=== PATIENT | female | born 1970 | race Caucasian/White ===

== ENCOUNTER 2018-04-24 16:05 | Outpatient (CLI) | payer OTHER ==
[2015-06-07 21:35] VITALS: BP 100/59
--- NOTE | 2018-04-24 19:01 | Diagnostic Imaging Report ---
IMER DRUMMOND (ALEENA) - OP [facility] [id number] [id number] Report Submission Date: Apr 24, 2018 6:02:11 PM PROCESS MANAGER Patient Study Name: CAROLEE FREITAS Date: Apr 24, 2018 4:40:10 PM PROCESS MANAGER Modality Type: DX Gender: F Description: C SPINE 2 OR 3 VIEWS : 72 Institution: [facility] Physician: IMER DRUMMOND) Enmanuel FAIRCHILD Cervical spine, three views. History: Chronic neck pain. Findings: The vertebral body heights and alignments are normal. There is intervertebral disc space narrowing at C5-C6 and C6-C7 with mild anterior spurring. There is no prevertebral soft tissue swelling. The base of the odontoid process is intact. Impression: 1. No acute osseous abnormality. 2. Multilevel spondylosis. Electronically signed on Apr 24, 2018 6:02:11 PM PROCESS MANAGER by: To CLEMENTE
== END 2018-04-24 16:15 ==
LOC: RAD 16:05
PROVIDERS: ATTEND Nurse Practitioner Family
DX: M47.812 Spondylosis without myelopathy or radiculopathy, cervical region (principal); M54.2 Cervicalgia; G89.29 Other chronic pain
CPT/HCPCS: 72040